=== PATIENT | female | born 1985 | race Two or more races ===

== ENCOUNTER 2016-12-13 18:18 | Emergency (ER) | payer SELFPAY ==
--- NOTE | 2016-12-13 19:07 | CPEKG ---
Heart Rate: 70 RR Interval: 857 P-R Interval: 204 QRSD Interval: 70 QT Interval: 372 QTC Interval: 402 P [place]: 53 QRS [place]: 46 T Wave [place]: 36 EKG Severity - NORMAL ECG - EKG Impression: SINUS RHYTHM Electronically Signed By: Bertha Steel 16-Dec-2016 14:02:59
--- NOTE | 2016-12-13 19:28 | EDPHY ---
H & P Stated Complaint: 1 week cough/stabbing pains in chest intermittently/fatigue Time Seen by Provider: 12/13/16 18:51 HPI/ROS: CHIEF COMPLAINT: URI symptoms, chest pain HISTORY OF PRESENT ILLNESS: 31-year-old female presents emergency department complaining of cough, nasal congestion, ear pain and sore throat for 1 week. Patient reports feeling fatigued with subjective fevers and chills and body aches. Patient reports her cough is at night, she has post-tussive emesis. Patient reports a 3 month history of intermittent left-sided sharp chest pains lasting for a few seconds. She reports these have been 2-3 times per week usually though with this illness they have been about once a day. Patient denies history of VTE, no recent surgery, no recent travel, she does not smoke cigarettes. Patient reports bilateral calf pain though states she always has calf pain due to taekwondo. REVIEW OF SYSTEMS: A comprehensive 10 point review of systems is otherwise negative aside from elements mentioned in the history of present illness. Source: Patient Exam Limitations: No limitations - Personal History LMP (Females 10-55): Now Current Tetanus/Diphtheria Vaccine: Yes - Medical/Surgical History Hx Asthma: No Hx Chronic Respiratory Disease: No Hx Diabetes: No Hx Cardiac Disease: No Hx Renal Disease: No Hx Cirrhosis: No Hx Alcoholism: No Hx HIV/AIDS: No Hx Splenectomy or Spleen Trauma: No Other PMH: hypothyroid/knee inj - Social History Smoking Status: Never smoked - Physical Exam Exam: General: Alert, nontoxic. ENT: Tympanic membranes clear, external auditory canal, external ear and surrounding soft tissue including over the mastoid unremarkable. Nasopharynx is injected, there is no rhinorrhea. Oropharynx with erythema, no. There is no exudate. No asymmetry. The uvula is midline. No elevation of tongue. There is no hoarseness. No drooling, patient has good control of their oral secretions. No trismus. No stridor. Cardiac: Regular rate and rhythm. Respiratory: Lungs clear to auscultation bilaterally. Extremities: Bilateral calf tenderness to palpation, no swelling, erythema or cords. Neurological: no meningismus. Skin: No rashes. Constitutional: Initial Vital Signs Temperature (C) 36.7 C 12/13/16 18:24 Heart Rate 77 12/13/16 18:24 Respiratory Rate 20 12/13/16 18:24 Blood Pressure 114/70 12/13/16 18:24 O2 Sat (%) 95 12/13/16 18:24 O2 Delivery Mode Room Air Allergies/Adverse Reactions: No Known Allergies Allergy (Unverified 12/13/16 18:23) Home Medications: Medication Instructions Recorded Albuterol [Proventil Inhaler HFA 1 - 2 puffs IH Q4H #1 mdi 12/13/16 (*)] Fluticasone Nasal [Flonase Nasal 1 sprays NASAL DAILY #1 mdi 12/13/16 [place] (RX)] Guaifenesin/Codeine Phosphate 10 ml PO HS PRN #100 ml 12/13/16 [Guaifenesin-Codeine Liquid] Levothyroxine 12/13/16 Tylenol 12/13/16 Medical Decision Making - Diagnostics EKG Interpretation: EKG shows normal sinus rhythm, rate 70, normal axis, good R-wave progression, no ST or T-wave abnormalities Imaging Results: Imaging Impressions Chest X-Ray 12/13/16 19:09 Impression: No acute findings in the chest. Imaging: I viewed and interpreted images myself ED Course/Re-evaluation: IV established, chest x-ray ordered, D-dimer and EKG obtained. Chest x-ray shows no evidence of pneumonia, D-dimer is negative, EKG is normal. Patient will be discharged with a diagnosis of upper respiratory infection. She is given a prescription for Flonase, albuterol inhaler and guaifenesin with codeine for her cough. Patient is given return precautions for worsening symptoms, new symptoms or concerns, she is to follow up with her primary care doctor for symptoms that are not improving in the next 7-10 days. Differential Diagnosis: Diagnosis considered but not limited to pneumonia, bronchitis, upper respiratory infection, pulmonary embolism - Data Points Laboratory Results: 12/13/16 12/13/16 19:25 19:25 D-Dimer 0.30 ug/mLFEU ug/mLFEU (0.00-0.50) Beta HCG, Qual NEGATIVE Departure - Departure Disposition: Home, Routine, Self-Care Clinical Impression: URI (upper respiratory infection) Qualifiers: URI type: unspecified viral URI Qualified Code(s): J06.9 - Acute upper respiratory infection, unspecified Condition: Good Instructions: Upper Respiratory Infection (ED) Additional Instructions: Take over the counter Tylenol and ibuprofen for body aches. Rest, drink plenty of fluids. Use a saline nasal rinse, humidifier at night, hot steam showers. Use 1 spray of Flonase in each nostril daily for 7 days, take 2 puffs of albuterol inhaler every 4-6 hours as needed for cough. Take cough syrup at night as needed. Follow up with your primary care doctor for symptoms that are not improving. Return to the ED for difficulty breathing, chest pain, other concerns. Referrals: [facility],. [Clinic] - As per Instructions Prescriptions: Albuterol [Proventil Inhaler HFA (*)] 1 - 2 puffs IH Q4H #1 mdi Fluticasone Nasal [Flonase Nasal [place] (RX)] 1 sprays NASAL DAILY #1 mdi Guaifenesin/Codeine Phosphate [Guaifenesin-Codeine Liquid] 10 ml PO HS PRN #100 ml PRN Reason: Cough, Moderate
[2016-12-13 21:00] VITALS: BP 106/65; PULSE 86; RESP 18; TEMP 97.9; O2SAT 97
== END 2016-12-13 21:23 | disposition home or self-care (01) ==
DX: J06.9 Acute upper respiratory infection, unspecified (principal)